=== PATIENT | female | born 1980 | race Caucasian/White ===

== ENCOUNTER 2016-08-05 20:08 | Emergency (ER) | payer OTHER ==
[~2016-08-05] VITALS: Ht 167.6 cm; Wt 149.5 kg
--- OUTSIDE RECORDS SUMMARY | 2016-08-05 20:16 | XMS REPORT ---
Author Author Friend, Emeli Organization [employer] Address Unknown Phone Unavailable Care Team Providers Care Tour Agent Name Role Phone Friend, Emeli CP Unavailable Allergies No Known Allergies Problems Problem Type Condition Code Onset Dates Condition Status Problem GERD (gastroesophageal reflux disease) K21.9 Active Problem JANIS (generalized anxiety disorder) F41.1 Active Problem Menorrhagia N92.0 Active Problem SANTANA on CPAP G47.33 Active Assessment Obesity E66.9 Active Problem MDD (major depressive disorder) F32.9 Active Problem Migraine G43.909 Active Medications No Known Medications Procedures Procedure Coding System Code Date OFFICE VISIT EST PATIENT LEVEL 3 CPT-4 90989 November 29, 2015 Vital Signs Date/Time: November 29, 2015 BMI 53.32 Index Weight 345.6 lbs Height 67.5 in Blood Pressure Diastolic 84 mm Hg Blood Pressure Systolic 120 mm Hg Cardiac Monitoring Heart Rate 83 /min Temperature 97.7 F Oximetry 97 % Respiratory Rate 20 /min Results No Known Results Summary Purpose [employer] Submission
[2016-08-05] MEDS ORDERED: HYDROcodone/APAP 5 MG/325 MG (NORCO) TAB PO ONE (20:45)
[2016-08-05] MEDS ORDERED: HYDR-3702 PO (20:54)
[2016-08-05] MEDS ORDERED: ED- HYDROcodone/ACETAMINOPHEN 5MG/325MG (NORCO) 6 TABLETS/BTL PO ONE (20:55)
[2016-08-05 21:35] VITALS: BP 140/95
== END 2016-08-05 21:35 | disposition home or self-care (01) ==
LOC: ED 20:11
DX: G89.11 Acute pain due to trauma (principal); M54.41 Lumbago with sciatica, right side; X50.0XXA Overexertion from strenuous movement or load, initial encounter; Y93.F2 Activity, caregiving, lifting; Y92.230 Patient room in hospital as the place of occurrence of the external cause; Y99.0 Civilian activity done for income or pay
CPT/HCPCS: 99282; 99283

== ENCOUNTER → 2016-08-05 | Outpatient (REF) ==
[~2016-08-05] MED LIST: HYDR-3702 PO
== END ==
LOC: EUOP 20:14
PROVIDERS: ATTEND Emergency Medicine
DX: Z02.89 Encounter for other administrative examinations (principal); Z02.83 Encounter for blood-alcohol and blood-drug test

== ENCOUNTER → 2016-08-07 | Outpatient (REF) | payer OTHER ==
--- NOTE | 2016-08-07 13:21 | Diagnostic Imaging Report ---
INDICATION: Back pain. AP and lateral views of the lumbar spine are obtained. FINDINGS: The lumbar vertebrae are normal in height and alignment. There is disc space narrowing and osteophyte formation at L3-L4 and to a lesser extent at L2-L3. There is no acute bony abnormality. There is no spondylolysis or spondylolisthesis. IMPRESSION: Degenerative findings of the lumbar spine as described above with no acute bony abnormality. Dictated by: Dictated on workstation # [id number]
--- NOTE | 2016-08-07 13:29 | Diagnostic Imaging Report ---
INDICATION: Pelvic pain post lifting injury. AP pelvis obtained at 11:48 a.m. No fracture or acute bony abnormality seen. There is no significant degenerative change. There is no joint space narrowing. IMPRESSION: Negative pelvis. Dictated by: Dictated on workstation # [id number]
== END ==
LOC: RAD 08:30 → EDSTATUS 08-13 14:14
PROVIDERS: ATTEND Internal Medicine
DX: R10.2 Pelvic and perineal pain (principal); X50.9XXA Other and unspecified overexertion or strenuous movements or postures, initial encounter
CPT/HCPCS: 72100; 72170

== ENCOUNTER 2016-08-09 13:59 | Outpatient (RCR) | payer OTHER | END 2016-08-20 12:00 | disposition home or self-care (01) | LOC: PT 13:59 | PROVIDERS: ATTEND Internal Medicine | DX: S39.012D Strain of muscle, fascia and tendon of lower back, subsequent encounter (principal); X50.0XXD Overexertion from strenuous movement or load, subsequent encounter ==